=== PATIENT | female | born 2000 | race Caucasian/White ===

== ENCOUNTER 2020-07-06 22:41 | Emergency (ER) | payer BC ==
[2020-07-06] MEDS ORDERED: Lorazepam 2 MG/ML VIAL ONE (23:22)
--- NOTE | 2020-07-06 23:42 | RAD ---
EXAM: CHEST ONE VIEW HISTORY: Dyspnea. Heart racing. COMPARISON: None FINDINGS: The cardiac silhouette and pulmonary vasculature are within normal limits. Lungs are hyper expanded b ut clear. The osseous structures are intact. IMPRESSION: No acute cardiopulmonary process.
--- NOTE | 2020-07-08 21:22 | EKG ---
Test Reason : Blood Pressure : / mmHG Vent. Rate : 143 BPM Atrial Rate : 143 BPM P-R Int : 134 ms QRS Dur : 078 ms QT Int : 260 ms P-R-T Axes : 074 086 -08 degrees QTc Int : 401 ms Sinus tachycardia Possible Left atrial enlargement Abnormal ECG rate related ST depression Confirmed by ISAIAS NAVA ([id number]), video tape editor FRANTZ JOHNSON ([id number]) on 07/08/2020 9:22:18 PM Referred By: Confirmed By:ISAIAS NAVA
== END 2020-07-07 01:47 | disposition home or self-care (01) ==
LOC: ERS 22:41
DX: F12.980 Cannabis use, unspecified with anxiety disorder (principal); F17.290 Nicotine dependence, other tobacco product, uncomplicated
CPT/HCPCS: 71045; 93005; 96374; J2060

== ENCOUNTER 2021-02-13 18:43 | Emergency (ER) | payer BC | END 2021-02-13 20:38 | disposition home or self-care (01) | LOC: ERS 18:43 | DX: F41.0 Panic disorder [episodic paroxysmal anxiety] (principal) | CPT/HCPCS: 99283 ==